=== PATIENT | female | born 1995 | race Caucasian/White ===

== ENCOUNTER 2025-03-15 11:27 | Inpatient (IN) | payer OTHER, SELFPAY ==
[2025-03-15] VITALS (14 sets, daily range): BP systolic 141–158; BP diastolic 90–115; PULSE 73–88; RESP 14–22; TEMP 36.7–37.1; O2SAT 96–98; BMI 30.1
--- NOTE | 2025-03-15 11:41 | ED_ITS ---
HPI - General Adult General Time Seen by Provider: 11:41 Date Seen: 03/15/25 Chief complaint: Flank Pain Stated complaint: L flank pain Time Seen by Provider: 03/15/25 11:40 Source: patient and RN notes reviewed Mode of arrival: ambulatory Limitations: no limitations History of Present Illness HPI narrative: This 29yo female is coming in to the ED with left flank pain. She has some underlying urinary symptoms that brought her to clinic yesterday at [facility]. She was having dysuria, frequency from Thursday to yesterday, feel supple symptoms actually are little better. Since that visit in overnight she has developed left flank pain, nausea, chills, no vomiting. She has had no fever. She states urinalysis showed 5-10 white blood cells and red blood cells. Urine culture is not back yet. She is currently . Her pain was severely intense on the way in, has subsided some. She was hyperventilating and did have carpal spasm bilaterally, improved when she settled down. She describes herself as a minimalist. She notes she has had 2 CT scans before, would prefer not to have CT imaging. 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 She did get a blood clot at the IV site when delivering her baby. She is interested in not accessing her venous system if at all possible. She has no history kidney stones, no known family history kidney stones but her mom is within wondered if this could be a kidney stone. Related Data Home Medications ?Medication ?Instructions ?Recorded ?Confirmed No Known Home Medications 03/15/2502/27 Allergies Allergy/AdvReac Type Severity Reaction Status Date / Time No Known Drug Allergies Allergy Verified 03/15/25 11:35 Review of Systems Status of ROS: Reports: 6 or more systems reviewed and unremarkable except as noted in History and below [facility] Medical History Factor 5 Leiden mutation, heterozygous ?D68.51 - Activated protein C resistance (ICD-10) Social History What is your current living situation?: I presently have a place to live Problems where you live: no known problems Problems where you live details: N/A In the past 12 months, utilities in danger of being shut off: no In past 12 months, lack of transportation kept you from medical appts, meetings, work, or getting things needed for daily living: no In the past 12 mos, have been you worried that your food would run out before you had money to buy more?: never true In the past 12 mos, the food you bought just didn't last and you didn't have money to buy more?: never true Smoking Status: Never smoker Second hand tobacco smoke exposure: No How often do you have a drink containing alcohol: never AUDIT-C Alcohol total score: 0 Non-prescribed substance use: denies use How often does anyone, including family, friends and others, physically hurt you : never How often does anyone, including family, friends and others, insult or talk down to you: never How often does anyone, including family, friends and others, threaten you with harm: never How often does anyone, including family, friends and others, scream or curse at you: never service: No Exam Const: Vital Signs, click to edit/add: Vital Signs - 24 hr 03/15/25 19:04 03/15/25 19:05 03/15/25 19:15 Temperature Pulse Rate 81 Pulse Rate [Pulse Oximeter] 78 Respiratory Rate 16 16 16 Blood Pressure Blood Pressure [Ri ght Upper Arm] 141/90 H Pulse Oximetry 98 Oxygen Delivery Me thod Room Air 03/15/25 19:24 03/15/25 20:00 03/15/25 20:16 Temperature 98.8 F Pulse Rate 73 82 Pulse Rate [Pulse Oximeter] Respiratory Rate 14 16 Blood Pressure 148/104 H Blood Pressure [Ri ght Upper Arm] Pulse Oximetry Oxygen Delivery Me thod This is a very pleasant 29-year-old female after calming down. She was hyperventilating when I 1st came in, was able to slower breathing. Sclera clear, face initially somewhat flushed but did decrease as she calmed down. She is able to speak in complete sentences, speech normal. Lungs are clear, good air entry, no wheezing crackles, no tachypnea at rest, no accessory muscle use. CV regular rate and rhythm, no murmur. Abdomen right now is soft, nontender, nondistended, no organomegaly, no rebound or guarding. No definite CVA tenderness but notably patient states her pain has improved at this time. Documenting provider has reviewed patient's vital signs: yes Course Course ED Course: Reviewed with patient that her symptoms certainly sound concerning for stone pathology with renal colic. It is imperative that we know she has a stone or not. She is going to see if she can get the culture from a [facility]. If not, we may need to get urinalysis here. She declines any pain management at this time, will avoid IV access. Have reviewed with her that I really do need to see CT imaging to look for stone pathology. We did discuss if she has an obstructing stone in there is concern for urinary infection, can be a surgical emergency, patients can get quite ill. We will do some basic blood work on her. She will let us know if she needs anything for pain management. We did review doing ultrasound looking at the renal system versus CT imaging. CT imaging is just so much better at giving us the information on stone size and pathology more so than the ultrasound. She does agree to have the CT done. Reevaluation(s) Time of Reevaluation #1: 13:16 Reevaluation #1: Have reviewed with patient her potassium is quite low. This likely contributed to that carpal spasm. She does not take any diuretics, has had no GI losses. She is , may have a urinary system issue. Really do not have a defined etiology why her potassium would be so low. Have ordered oral effervescent potassium for her. We will get an EKG. She was resting comfortably when I came in. Time of Reevaluation #2: 14:14 Reevaluation #2: Have provided patient with a copy of her CT. Also showed them her EKG with the abnormalities from the hypokalemia. Her magnesium is on the low side of normal. We discussed giving her some oral replacement for magnesium. We have reviewed her kidney stone and anticipated management of this. She would prefer to not be hospitalized. If we can get her potassium up sufficiently, confirm improvement of the EKG changes, do think we can discharge to home with close outpatient follow-up. Time of Reevaluation #3: 16:37 Reevaluation #3: Patient's potassium has come back at 2.6. We are going to order another 10 mEq IV potassium. She is still getting the 1st 10 mEq IV. She has received a total of 100 mEq orally. She is not having further issues at this time as far as her renal colic. After the 2nd dose of IV potassium, plan on rechecking her potassium and EKG. Additional Reevaluation(s): 7:17 p.m.: Have reviewed with patient that her potassium is actually down to 2.5 despite 20 mEq IV potassium and 100 mEq oral effervescent potassium. Her EKG is showing the ongoing nonspecific ST and T-wave abnormality. Her urinalysis from lab yesterday had no ketones, negative nitrates, negative leukocyte esterase, no bacteria, 0-2 red blood cells, 0-5 white cells, no squamous epithelial cells, no white blood clumps. She had no Trichomonas, no yeast, no clue cells under laboratory testing yesterday. We did discuss that we need to consider treatment for possible urinary infection setting of the kidney stone. She has not had increased pain again. It is possible that a 3 mm stone has already moved. I still think we should cover for the possibility of urinary tract infection. I have discussed Rocephin versus Keflex. She would like to look these up and will make a decision. We are attempting to talk to Nephrology. There was an adrenal adenoma seen on her CT imaging incidentally. I feel we need further input from nephrology and help on this case. Consultations Consultation #1: Did speak with Nephrology on-call from [place] whom is with [facility] Dr. Manfred Mccarthy. We reviewed her her case, he states with the elevated blood pressure and the low potassium he would be concerned about hyper aldosteronism. We need to replete her potassium up to 3.5 and then check green in an aldosterone levels. He would also recommend just doing a spot cortisol level which I will see if I can add on. The hospitalist taking care of her tomorrow should contact their group at [phone] sometime after 8 or 9:00 a.m. tomorrow morning. He did not feel that urine studies were going to be helpful in this case. I did ask him about any benefit of giving her extra magnesium at a level of 1.7 which is in our normal range. He did not feel it would be helpful. I have discussed this both with our hospitalist and with the patient. I have subsequently ordered 25 mEq oral potassium and the 10 mEq potassium x4 doses IV. Time: 19:27 Consultation #2: Case was reviewed with our hospitalist Laurel Trevizo. She will accept care. She is aware that there are some EKG changes, patient should be on cardiac monitoring. Time: 19:51 Vital Signs Vital signs: Initial Vital Signs Temperature 98.1 F 03/15/25 11:32 Temperature Source Temporal Artery Scan 03/15/25 11:32 Pulse Rate 88 03/15/25 11:32 Respiratory Rate 22 03/15/25 11:32 Blood Pressure Position Sitting 03/15/25 11:32 Pulse Oximetry 98 03/15/25 11:32 Oxygen Delivery Method Room Air 03/15/25 11:32 Vital Signs Temperature 98.1 F 03/15/25 11:32 Pulse Rate 88 03/15/25 11:32 Respiratory Rate 22 03/15/25 11:32 Pulse Oximetry 98 03/15/25 11:32 Oxygen Delivery Method Room Air 03/15/25 11:32 Temperature 97.6 F 03/16/25 11:00 Pulse Rate 60 03/16/25 11:00 Respiratory Rate 18 03/16/25 11:00 Blood Pressure 144/107 H 03/16/25 11:00 Pulse Oximetry 96 03/16/25 11:00 Oxygen Delivery Method Room Air 03/16/25 11:00 Medications Administered Medications: Generic Name Dose Route Start Last Admin Trade Name Freq PRN Reason Stop Dose Admin Sodium Chloride 5 ml 03/15/25 21:00 03/16/25 09:19 Sodium Chloride 0.9 % (Flush) 10 Ml Syringe IVF 5 ml BID WILLA Administration Discontinued Medications Generic Name Dose Route Start Last Admin Trade Name Freq PRN Reason Stop Dose Admin Magnesium Sulfate/Dextrose 1 gm in 100 mls @ 100 mls/hr 03/15/25 14:46 03/15/25 18:51 Magnesium Sulf 1 G/100 Ml IVPB 03/15/25 15:45 Not Given ONCE ONE Potassium Chloride 10 meq in 100 mls @ 100 mls/hr 03/15/25 14:45 03/15/25 17:20 Potassium Chloride IVPB 03/15/25 15:44 Infused ONCE ONE Infusion Potassium Chloride 10 meq in 100 mls @ 100 mls/hr 03/15/25 16:37 03/15/25 18:08 Potassium Chloride IVPB 03/15/25 17:36 Infused ONCE ONE Infusion Potassium Chloride 10 meq in 100 mls @ 100 mls/hr 03/15/25 19:45 03/16/25 01:23 Potassium Chloride IVPB 03/16/25 01:14 Infused Q90M WILLA Infusion Potassium Chloride 10 meq in 100 mls @ 100 mls/hr 03/16/25 01:30 03/16/25 04:43 Potassium Chloride IVPB 03/16/25 06:59 100 mls/hr Q90M WILLA Administration Magnesium Oxide 400 mg 03/15/25 14:15 03/15/25 14:38 Magnesium Oxide 400 Mg Tablet PO 03/15/25 14:16 400 mg ONCE ONE Administration Potassium Bicarbonate 50 meq 03/15/25 13:12 03/15/25 13:23 Potassium Bicarb 25 Meq Effervescent Tab PO 03/15/25 13:13 50 meq ONCE ONE Administration Potassium Bicarbonate 50 meq 03/15/25 14:15 03/15/25 14:40 Potassium Bicarb 25 Meq Effervescent Tab PO 03/15/25 14:16 50 meq ONCE ONE Administration Potassium Bicarbonate 25 meq 03/15/25 19:39 03/15/25 19:45 Potassium Bicarb 25 Meq Effervescent Tab PO 03/15/25 19:40 25 meq ONCE ONE Administration Potassium Bicarbonate 50 meq 03/16/25 09:12 03/16/25 09:27 Potassium Bicarb 25 Meq Effervescent Tab PO 03/16/25 09:13 50 meq ONCE ONE Administration Medical Decision Making Lab Data Lab results reviewed: Yes I reviewed the patient's lab results Labs: Lab Results 03/15/25 03/15/25 03/15/25 Range/Units 11:59 12:25 13:11 WBC 9.21 (4.50-11.00) K/uL RBC 5.13 (4.00-5.20) m/uL Hgb 13.9 (12.0-16.0) gm/dL Hct 41.7 (33.0-51.0) % MCV 81 (80-100) fL MCH 27 (26-34) pg MCHC 33 (32-36) gm/dL RDW Coeff of Emma 14.9 (11.5-15.5) % Plt Count 352 (140-440) K/uL Neut % (Auto) 69.8 (42.0-72.0) % Lymph % (Auto) 18.9 L (20-44) % Garrard % (Auto) 5.8 (0.0-11.0) % Eos % (Auto) 4.6 (0.0-7.0) % Baso % (Auto) 0.8 (0.0-3.0) % Neut # (Auto) 6.44 (1.7-7.0) K/uL Lymph # (Auto) 1.70 (0.90-2.90) K/uL Garrard # (Auto) 0.50 (0.00-0.90) K/UL Eos # (Auto) 0.42 (0.00-0.50) K/uL Baso # (Auto) 0.07 (0.00-0.30) K/uL Abs Immat Gran (auto) 0.01 (0.00-0.30) K/uL Imm/Tot Granulo (auto) 0.1 % Sodium 139 (135-149) mmol/L Potassium 2.2 L* (3.6-5.1) mmol/L Chloride 97 (96-114) mmol/L Carbon Dioxide 34 H (20-32) mmol/L Anion Gap 8 (7-15) mEq/L BUN 11 (5-24) mg/dL Creatinine 0.6 (0.5-1.5) mg/dL Estimated GFR 123 ml/min Glucose 94 (60-115) mg/dL Lactate 1.2 (0.5-1.9) mmol/L Calcium 9.4 (8.4-10.6) mg/dL Magnesium 1.7 (1.5-2.6) mg/dL C-Reactive Protein 0.9 (0.5-1.0) mg/dL TSH (0.270-4.200) uIU/mL Free T4 (0.70-1.85) ng/dL Urine Color Yellow (Yellow) Urine Appearance Clear (Clear) Urine pH 7.0 (5.0-8.5) Ur Specific [place] 1.020 (1.000-1.030) Urine Protein 3+ A (Negative) Urine Glucose (UA) Negative (Negative) Urine Ketones 3+ A (Negative) Urine Blood 3+ A (Negative) Urine Nitrite Negative (Negative) Urine Bilirubin Negative (Negative) Urine Urobilinogen 0.2 (0.2-1.0) Ur Leukocyte Esterase 1+ A (Negative) Urine RBC 2-5 A (0-2) Urine WBC 10-25 A (0-5) Ur Squamous Epith Cells None (None-Few) Urine Bacteria Moderate A (None) Lab Acknowledgement Test Added 03/15/25 03/15/25 03/15/25 Range/Units 15:32 15:33 18:29 WBC (4.50-11.00) K/uL RBC (4.00-5.20) m/uL Hgb (12.0-16.0) gm/dL Hct (33.0-51.0) % MCV (80-100) fL MCH (26-34) pg MCHC (32-36) gm/dL RDW Coeff of Emma (11.5-15.5) % Plt Count (140-440) K/uL Neut % (Auto) (42.0-72.0) % Lymph % (Auto) (20-44) % Garrard % (Auto) (0.0-11.0) % Eos % (Auto) (0.0-7.0) % Baso % (Auto) (0.0-3.0) % Neut # (Auto) (1.7-7.0) K/uL Lymph # (Auto) (0.90-2.90) K/uL Garrard # (Auto) (0.00-0.90) K/UL Eos # (Auto) (0.00-0.50) K/uL Baso # (Auto) (0.00-0.30) K/uL Abs Immat Gran (auto) (0.00-0.30) K/uL Imm/Tot Granulo (auto) % Sodium (135-149) mmol/L Potassium 2.6 L* 2.5 L* (3.6-5.1) mmol/L Chloride (96-114) mmol/L Carbon Dioxide (20-32) mmol/L Anion Gap (7-15) mEq/L BUN (5-24) mg/dL Creatinine (0.5-1.5) mg/dL Estimated GFR ml/min Glucose (60-115) mg/dL Lactate (0.5-1.9) mmol/L Calcium (8.4-10.6) mg/dL Magnesium (1.5-2.6) mg/dL C-Reactive Protein (0.5-1.0) mg/dL TSH 0.230 L (0.270-4.200) uIU/mL Free T4 1.21 (0.70-1.85) ng/dL Urine Color (Yellow) Urine Appearance (Clear) Urine pH (5.0-8.5) Ur Specific [place] (1.000-1.030) Urine Protein (Negative) Urine Glucose (UA) (Negative) Urine Ketones (Negative) Urine Blood (Negative) Urine Nitrite (Negative) Urine Bilirubin (Negative) Urine Urobilinogen (0.2-1.0) Ur Leukocyte Esterase (Negative) Urine RBC (0-2) Urine WBC (0-5) Ur Squamous Epith Cells (None-Few) Urine Bacteria (None) Lab Acknowledgement Test Added 03/15/25 Range/Units 20:10 WBC (4.50-11.00) K/uL RBC (4.00-5.20) m/uL Hgb (12.0-16.0) gm/dL Hct (33.0-51.0) % MCV (80-100) fL MCH (26-34) pg MCHC (32-36) gm/dL RDW Coeff of Emma (11.5-15.5) % Plt Count (140-440) K/uL Neut % (Auto) (42.0-72.0) % Lymph % (Auto) (20-44) % Garrard % (Auto) (0.0-11.0) % Eos % (Auto) (0.0-7.0) % Baso % (Auto) (0.0-3.0) % Neut # (Auto) (1.7-7.0) K/uL Lymph # (Auto) (0.90-2.90) K/uL Garrard # (Auto) (0.00-0.90) K/UL Eos # (Auto) (0.00-0.50) K/uL Baso # (Auto) (0.00-0.30) K/uL Abs Immat Gran (auto) (0.00-0.30) K/uL Imm/Tot Granulo (auto) % Sodium (135-149) mmol/L Potassium (3.6-5.1) mmol/L Chloride (96-114) mmol/L Carbon Dioxide (20-32) mmol/L Anion Gap (7-15) mEq/L BUN (5-24) mg/dL Creatinine (0.5-1.5) mg/dL Estimated GFR ml/min Glucose (60-115) mg/dL Lactate (0.5-1.9) mmol/L Calcium (8.4-10.6) mg/dL Magnesium (1.5-2.6) mg/dL C-Reactive Protein (0.5-1.0) mg/dL TSH (0.270-4.200) uIU/mL Free T4 (0.70-1.85) ng/dL Urine Color (Yellow) Urine Appearance (Clear) Urine pH (5.0-8.5) Ur Specific [place] (1.000-1.030) Urine Protein (Negative) Urine Glucose (UA) (Negative) Urine Ketones (Negative) Urine Blood (Negative) Urine Nitrite (Negative) Urine Bilirubin (Negative) Urine Urobilinogen (0.2-1.0) Ur Leukocyte Esterase (Negative) Urine RBC (0-2) Urine WBC (0-5) Ur Squamous Epith Cells (None-Few) Urine Bacteria (None) Lab Acknowledgement Test Added Imaging Data CT scan - abdomen: Attestation: I have reviewed the pertinent imaging results. Radiologist's impression: Patient: MARIE NELSON Facility:?[facility] Patient ID:?[id number] Site Patient ID:?[id number]. Site :?[id number] Study:?CT-Abdomen/Pelvis W/O-03/15/2025 12:07:55 PM Ordering Physician:Alonso Raymond Final Report: INDICATION: Abdominal pain TECHNIQUE: Volumetric helical scanning of the abdomen and pelvis was performed without contrast material. Coronal and sagittal reconstructions were obtained. COMPARISON: None FINDINGS: An acutely obstructing 3 mm distal left ureteral stone within 1 cm of the UVJ as seen on image 133 of series 2. Mild left hydroureter and hydronephrosis is demonstrate along with periureteral and perinephric stranding. The kidneys are normal in size, shape and attenuation. The bladder is grossly negative. The uterus and ovaries are grossly negative. The liver is normal in size, shape and attenuation. No bile duct dilation is evident. The spleen is within normal limits. A 1.5 cm left adrenal adenoma is noted. The right adrenal is normal. The pancreas is within normal limits. No lymphadenopathy is evident. No free fluid is demonstrated. The bowel is unremarkable. A normal appendix is demonstrated. The lung bases are essentially clear, and heart size is normal. IMPRESSION: 1. Acutely obstructing 3 mm distal left ureteral stone within 1 cm of the UVJ. 2. 1.5 cm left adrenal adenoma. Please note that all CT scans at this facility use dose modulation, iterative reconstruction, and/or weight-based dosing when appropriate to reduce radiation dose to as low as reasonably achievable. Dictated by Demond Burns MD @ 03/15/2025 1:11:38 PM (Electronic Signature) ECG Data Attestation: I personally reviewed and interpreted this ECG as follows: (Normal sinus rhythm with sinus arrhythmia, 79 beats per minute. She has flipped T- waves inferior anterolateral precordial leads. Some mild ST segment changes V3 V4 V5 certainly. These are consistent with her hypokalemia. QT corrected 470 milliseconds.) Prior ECG tracings: not available for review Interpretation: Second EKG after potassium replacement shows normal sinus rhythm, 90 beats per minute. There are T-wave abnormalities in the inferior and anterolateral dist ribution. The ST segment changes in V3 is certainly not as pronounced. Discharge Plan Discharge Clinical Impression: Acute hypokalemia, Kidney stone on left side Patient Disposition: Admitted As Inpatient Condition: Stable
--- NOTE | 2025-03-15 12:05 | CRLHL7_ITS ---
For Patients: As a result of the Century Cures Act, medical imaging exams and procedure reports are released immediately into your electronic medical record. You may view this report before your referring provider. If you have questions, please contact your health care provider. INDICATION: Abdominal pain TECHNIQUE: Volumetric helical scanning of the abdomen and pelvis was performed without contrast material. Coronal and sagittal reconstructions were obtained. COMPARISON: None FINDINGS: An acutely obstructing 3 mm distal left ureteral stone within 1 cm of the UVJ as seen on image 133 of series 2. Mild left hydroureter and hydronephrosis is demonstrate along with periureteral and perinephric stranding. The kidneys are normal in size, shape and attenuation. The bladder is grossly negative. The uterus and ovaries are grossly negative. The liver is normal in size, shape and attenuation. No bile duct dilation is evident. The spleen is within normal limits. A 1.5 cm left adrenal adenoma is noted. The right adrenal is normal. The pancreas is within normal limits. No lymphadenopathy is evident. No free fluid is demonstrated. The bowel is unremarkable. A normal appendix is demonstrated. The lung bases are essentially clear, and heart size is normal. IMPRESSION: 1. Acutely obstructing 3 mm distal left ureteral stone within 1 cm of the UVJ. 2. 1.5 cm left adrenal adenoma. Please note that all CT scans at this facility use dose modulation, iterative reconstruction, and/or weight-based dosing when appropriate to reduce radiation dose to as low as reasonably achievable. Dictated by Demond Burns MD @ 03/15/2025 1:11:38 PM (Electronically Signed)
[2025-03-15 12:08] LABS: Lactate* 1.2 mmol/L (0.5-1.9)
[2025-03-15 12:09] LABS: Hematocrit 41.7 % (33.0-51.0); Hemoglobin* 13.9 gm/dL (12.0-16.0); Immature Granulocytes Abs Auto 0.01 K/uL (0.00-0.30); Immature Granulocytes Pct Auto 0.1 %; Mean Corpuscular HGB Conc 33 gm/dL (32-36); Mean Corpuscular Hemoglobin 27 pg (26-34); Mean Corpuscular Volume 81 fL (80-100); RDW Coefficient of Variation % 14.9 % (11.5-15.5); Red Blood Count 5.13 m/uL (4.00-5.20); White Blood Count* 9.21 K/uL (4.50-11.00)
[2025-03-15 12:10] LABS: Lymphocytes Absolute Auto 1.70 K/uL (0.90-2.90); Slide Review Reflex No
[2025-03-15 12:24] LABS: Chloride* 97 mmol/L (96-114); Sodium* 139 mmol/L (135-149)
[2025-03-15 12:28] LABS: Anion Gap 8 mEq/L (7-15); Blood Urea Nitrogen* 11 mg/dL (5-24); Calcium* 9.4 mg/dL (8.4-10.6); Carbon Dioxide* 34 mmol/L (20-32); Creatinine* 0.6 mg/dL (0.5-1.5); Estimated Glomerular Filt Rate 123 ml/min; Glucose* 94 mg/dL (60-115)
[2025-03-15 12:34] LABS: Potassium* 2.2 mmol/L (3.6-5.1)
[2025-03-15] MEDS: POTASSIUM BICARB 25 MEQ EFFERVESCENT TAB 50 MEQ PO ×2 (13:23→14:40)
[2025-03-15 13:28] LABS: Appearance Urine Clear (Clear)
[2025-03-15] MEDS: MAGNESIUM OXIDE 400 MG TABLET PO (14:38)
[2025-03-15] MEDS: POTASSIUM CHLORIDE 10 MEQ/100 ML PIGGYBACK 100 MEQ IVPB ×6 (15:44→22:27)
[2025-03-15 16:00] LABS: Potassium* 2.6 mmol/L (3.6-5.1)
[2025-03-15 18:52] LABS: Potassium* 2.5 mmol/L (3.6-5.1)
[2025-03-15] MEDS: POTASSIUM BICARB 25 MEQ EFFERVESCENT TAB PO (19:45)
[2025-03-15 19:52] LABS: TSH With Reflex to FT4* 0.230 uIU/mL (0.270-4.200)
--- NOTE | 2025-03-15 20:14 | PM.IMHP1 ---
Assessment and Plan Assessment and plan (1) Adrenal adenoma: Problem comment: -incidental finding on CT, 1.5 cm left adrenal adenoma -ED provider discussed with Dr. Gina Montez, Nephrology, [facility]. Given hypokalemia and elevated blood pressure, concern for hyperaldosteronism. Recommending hospitalization with potassium replacement and checking renin and aldosterone levels after potassium reaches 3.5. Spot cortisol level ordered in ED -Dr. Montez requests day hospitalist call him morning for further discussion -Will need outpatient follow-up with Nephrology team following discharge Status: Acute (2) Acute hypokalemia: Problem comment: -potassium 2.2-> 2.6-> 2.5 -has received 100 mEq oral potassium and 20 mEq IV potassium in the ED -ED has ordered an additional 25 mEq effervescent potassium and 4 bumps of 10 mEq IV potassium for a total of 40 mEq IV -recheck potassium at midnight -1st EKG NSR with flat/depressed T-wave changes, repeat EKG essentially unchanged. Prolonged QTC Status: Acute (3) Abnormal TSH: Problem comment: -TSH 0.230, free T4 1.21 -cortisol pending -follow-up with nephrology tomorrow for further recommendations, consider overnight dexamethasone suppression test Status: Acute (4) Kidney stone on left side: Problem comment: -initial presentation in the ED was left flank pain -CT shows obstructing 3 mm distal left ureteral stone within 1 cm of the UVJ -pain has since resolved, barely sore. Patient urinated without strainer, question if she may have passed this stone Status: Acute (5) Bacteriuria: Problem comment: -UA clear, negative nitrite, 1+ LE, 10-25 WBC, moderate bacteria -UC pending -patient prefers not to start any antibiotics until culture resulted, this is reasonable Status: Acute (6) Breast feeding status of mother: Problem comment: -current Status: Acute Total Time Spent Total Time Spent: Today I spent 75 minutes seeing the patient, reviewing Expanse and EPIC notes/diagnostics, discussing the care plan with our care time that includes social work, PT/OT, pharmacy, RT, long term and documenting my impressions and plan in the medical record. Hospitalist- H&P: HPI History of Present Illness Date Seen: 03/15/25 Chief complaint: L flank pain Narrative: Jordyn Wolfe is a 29 year old female past medical history significant for factor 5 Leiden, history of DVT and pulmonary emboli, peripheral IV clot is currently , not on any prescription medications, and is admitted to the medical floor from the ED for further management hypokalemia and incidental finding of adrenal adenoma. Patient is seen with mother at bedside. Presented to ED with complaint of left flank pain and recent UTI symptoms including dysuria and frequency for which she was seen at the [facility] yesterday. She tells me her UTI symptoms have dissipated since noon today. Has been afebrile. No headache or dizziness. No chest pain or shortness of breath but was noted to be hyperventilating initially in the ED. This has since resolved. No recent nausea or vomiting. No change in stools. Has been in the ED for several hours and left flank pain has since resolved. It is reported she urinated but did not use a strainer so may have even passed this stone. No previous history of kidney stones. In the ED, patient was noted to have an obstructing 3 mm stone. Unsure if this has since passed but no longer having much pain. Also noted to be hypokalemic with EKG changes. Incidentally, adrenal adenoma was found. ED provider discussed with Nephrology at [facility], Dr. Gina Montez, recommending local hospitalization with potassium replacement, spot cortisol checked now, renin and aldosterone check after potassium improved to 3.5. Recently moved to this area. No outside records available. No PCP yet established. . . - [place] til 2022. Review of Systems Narrative: REVIEW OF SYSTEMS: Complete review of systems performed and negative unless otherwise stated in HPI or below. Medical Decision Making Medical Decision Making Code Status: Full code [facility] Medical History Factor 5 Leiden mutation, heterozygous ?D68.51 - Activated protein C resistance (ICD-10) Social History Smoking Status: Never smoker How often do you have a drink containing alcohol: never AUDIT-C Alcohol total score: 0 Non-prescribed substance use: denies use Meds Home Medications and Allergies Home Medications ?Medication ?Instructions ?Recorded ?Confirmed ?Type No Known Home Medications 03/15/25 03/15/25 History Allergies Allergy/AdvReac Type Severity Reaction Status Date / Time No Known Drug Allergies Allergy Verified 03/15/25 11:35 Exam Narrative: Exam Narrative: PHYSICAL EXAM General: Pleasant, conversant, NAD HEENT: Normocephalic, atraumatic, sclera white, EOMI, oral mucosa moist Cardiovascular: RRR, S1S2. No pitting edema Pulmonary: CTA bilaterally without rhonchi, rales, expiratory wheezes. No dyspnea Abdominal: Soft, nondistended, NTTP Neurological: Alert, answering questions appropriately, cranial nerves intact, no focal findings Extremities: No gross joint deformity or swelling. AROMI. Neurovascularly intact Skin: Warm, dry. Const: Vital Signs, click to edit/add: Vital Signs - 24 hr 03/15/25 11:32 03/15/25 19:04 03/15/25 19:15 Temperature 98.1 F Pulse Rate [Pulse Oximeter] 88 78 Respiratory Rate 22 16 16 Blood Pressure [Ri ght Upper Arm] 141/90 H Pulse Oximetry 98 98 Oxygen Delivery Me thod Room Air Room Air 03/15/25 19:24 Temperature 98.8 F Pulse Rate [Pulse Oximeter] Respiratory Rate Blood Pressure [Ri ght Upper Arm] Pulse Oximetry Oxygen Delivery Co thod Hospitalist - H&P: Result Labs Labs: Short CBC 03/15/25 Range/Units 11:59 WBC 9.21 (4.50-11.00) K/uL Hgb 13.9 (12.0-16.0) gm/dL Hct 41.7 (33.0-51.0) % Plt Count 352 (140-440) K/uL [facility] 03/15/25 03/15/25 03/15/25 11:59 15:32 18:29 Sodium 139 Potassium 2.2 L* 2.6 L* 2.5 L* Chloride 97 Carbon Dioxide 34 H BUN 11 Creatinine 0.6 Glucose 94 Calcium 9.4 Urine 03/15/25 Range/Units 12:25 Urine Color Yellow (Yellow) Urine Appearance Clear (Clear) Urine pH 7.0 (5.0-8.5) Ur Specific [place] 1.020 (1.000-1.030) Urine Protein 3+ A (Negative) Urine Glucose (UA) Negative (Negative) ECG Attestation: I personally reviewed and interpreted this ECG as follows: Interpretation: NSR, flat/depressed T-waves, ventricular rate 90, QTC [address] scan - abdomen: Attestation: I have reviewed the pertinent imaging results. Radiologist's impression: An acutely obstructing 3 mm distal left ureteral stone within 1 cm of the UVJ as seen on image 133 of series 2. Mild left hydroureter and hydronephrosis is demonstrate along with periureteral and perinephric stranding. The kidneys are normal in size, shape and attenuation. The bladder is grossly negative. The uterus and ovaries are grossly negative. The liver is normal in size, shape and attenuation. No bile duct dilation is evident. The spleen is within normal limits. A 1.5 cm left adrenal adenoma is noted. The right adrenal is normal. The pancreas is within normal limits. No lymphadenopathy is evident. No free fluid is demonstrated. The bowel is unremarkable. A normal appendix is demonstrated. The lung bases are essentially clear, and heart size is normal. IMPRESSION: 1. Acutely obstructing 3 mm distal left ureteral stone within 1 cm of the UVJ. 2. 1.5 cm left adrenal adenoma.
[2025-03-15 20:26] LABS: Free T4 Free Thyroxine* 1.21 ng/dL (0.70-1.85)
[2025-03-16 01:10] LABS: Potassium* 2.7 mmol/L (3.6-5.1)
[2025-03-16] MEDS: POTASSIUM CHLORIDE 10 MEQ/100 ML PIGGYBACK 100 MEQ IVPB ×4 (02:02→04:43)
[2025-03-16 02:03] VITALS: BP 148/107; PULSE 81; RESP 16; TEMP 37.3; O2SAT 97
--- NOTE | 2025-03-16 04:24 | PC.NURSE ---
Shift note: Patient arrived to the floor at 2050 from ED. She was accompanied by mother and with 7 months old child. Mother asked if she can stay with the child. Mother was instructed that, the child can stay only an older person stays with them. offered to stay with pt and child. Conscious, alert and oriented on arrival. Patient came with IV Potassium to the right AC. Patient complained on burning sensation to the site of infusion. N/S was given through additional bag to reduce the burning which was effective. IV potassium 40mg given. Lab ordered at 0050 and potassium level cam back as 2.7 from 2.5. MD notified and ordered additional 40mg of potassium IV and potassium level to be rechecked in the morning. Pain level rated at zero. Bp has been elevated but pt denied previous history. Other Vital signs stable.
[2025-03-16 06:40] LABS: Hematocrit 39.0 % (33.0-51.0); Hemoglobin* 13.1 gm/dL (12.0-16.0); Mean Corpuscular HGB Conc 34 gm/dL (32-36); Mean Corpuscular Hemoglobin 28 pg (26-34); Mean Corpuscular Volume 82 fL (80-100); Red Blood Count 4.76 m/uL (4.00-5.20); White Blood Count* 6.77 K/uL (4.50-11.00)
[2025-03-16 06:44] LABS: Chloride* 101 mmol/L (96-114); Sodium* 139 mmol/L (135-149)
[2025-03-16 06:47] LABS: Anion Gap 6 mEq/L (7-15); Blood Urea Nitrogen* 10 mg/dL (5-24); Carbon Dioxide* 32 mmol/L (20-32); Creatinine* 0.6 mg/dL (0.5-1.5); Est. Creatinine Clearance* 137.04; Estimated Glomerular Filt Rate 123 ml/min
[2025-03-16 06:48] LABS: Calcium* 8.7 mg/dL (8.4-10.6); Glucose* 91 mg/dL (60-115); Slide Review Reflex No
[2025-03-16 06:53] LABS: Potassium* 2.9 mmol/L (3.6-5.1)
[2025-03-16 07:00] VITALS: BP 143/95; PULSE 62; PULSE 75; RESP 18; TEMP 36.8; O2SAT 96
[2025-03-16] MEDS: SODIUM CHLORIDE 0.9 % (FLUSH) 10 ML SYRINGE 5 ML IVF (09:19)
[2025-03-16] MEDS: POTASSIUM BICARB 25 MEQ EFFERVESCENT TAB 50 MEQ PO ×3 (09:27→15:37)
[2025-03-16 11:00] VITALS: BP 144/107; PULSE 60; RESP 18; TEMP 36.4; O2SAT 96
[2025-03-16 12:44] LABS: Potassium* 3.1 mmol/L (3.6-5.1)
--- NOTE | 2025-03-16 14:31 | PM.IMPN1 ---
Assessment and Plan Assessment and plan (1) Kidney stone on left side: Problem comment: -initial presentation in the ED was left flank pain -CT shows obstructing 3 mm distal left ureteral stone within 1 cm of the UVJ -pain has since resolved, barely sore. Patient urinated without strainer, question if she may have passed this stone Status: Acute (2) Acute hypokalemia: Problem comment: -potassium 2.2-> 2.6-> 2.5 -has received 100 mEq oral potassium and 20 mEq IV potassium in the ED -ED has ordered an additional 25 mEq effervescent potassium and 4 bumps of 10 mEq IV potassium for a total of 40 mEq IV -recheck potassium at midnight -1st EKG NSR with flat/depressed T-wave changes, repeat EKG essentially unchanged. Prolonged QTC -03/16/2025: spontaneous hypokalemia with elevated blood pressures suspicious of aldosteronism. Continue with potassium supplementation to achieve serum potassium level of 3.5 or greater at which time we will draw blood to assess the plasma renin activity, plasma renin concentration, and plasma aldosterone concentration. Will need follow-up with primary care physician and likely specialist if these come back abnormal. Status: Acute (3) Adrenal adenoma: Problem comment: -incidental finding on CT, 1.5 cm left adrenal adenoma -ED provider discussed with Dr. Gina Montez, Nephrology, [facility]. Given hypokalemia and elevated blood pressure, concern for hyperaldosteronism. Recommending hospitalization with potassium replacement and checking renin and aldosterone levels after potassium reaches 3.5. Spot cortisol level ordered in ED -Dr. Montez requests day hospitalist call him morning for further discussion -Will need outpatient follow-up with Nephrology team following discharge Status: Acute (4) Breast feeding status of mother: Problem comment: -current Status: Acute (5) Bacteriuria: Problem comment: -UA clear, negative nitrite, 1+ LE, 10-25 WBC, moderate bacteria -UC pending -patient prefers not to start any antibiotics until culture resulted, this is reasonable Status: Acute (6) Abnormal TSH: Problem comment: -TSH 0.230, free T4 1.21 -cortisol pending -follow-up with nephrology tomorrow for further recommendations, consider overnight dexamethasone suppression test Status: Acute (7) Factor 5 Leiden mutation, heterozygous: Problem comment: Reports history of DVT and pulmonary emboli - will discuss with patient the idea of low-molecular weight heparin venous thromboembolism prophylaxis while she is in the hospital Status: Acute Plan 1. Discussed with patient and 2. Reviewed my impression, plans, recommendations 3. Answered their questions their satisfaction 4. They are agreeable with above stated plans and recommendations Total Time Spent Total Time Spent: 45 minutes Subjective Date Seen: 03/16/25 Interval history: Admission history of present illness: ?29 year old female past medical history significant for factor 5 Leiden, history of DVT and pulmonary emboli, peripheral IV clot is currently , not on any prescription medications, and is admitted to the medical floor from the ED for further management hypokalemia and incidental finding of adrenal adenoma. ?Patient is seen with mother at bedside. Presented to ED with complaint of left flank pain and recent UTI symptoms including dysuria and frequency for which she was seen at the [facility] yesterday. She tells me her UTI symptoms have dissipated since noon today. Has been afebrile. No headache or dizziness. No chest pain or shortness of breath but was noted to be hyperventilating initially in the ED. This has since resolved. No recent nausea or vomiting. No change in stools. Has been in the ED for several hours and left flank pain has since resolved. It is reported she urinated but did not use a strainer so may have even passed this stone. No previous history of kidney stones. ?In the ED, patient was noted to have an obstructing 3 mm stone. Unsure if this has since passed but no longer having much pain. Also noted to be hypokalemic with EKG changes. Incidentally, adrenal adenoma was found. ED provider discussed with Nephrology at [facility], Dr. Gina Montez, recommending local hospitalization with potassium replacement, spot cortisol checked now, renin and aldosterone check after potassium improved to 3.5. ?Recently moved to this area. No outside records available. No PCP yet established. . . [facility] [place] til 2022. ? Hospital day 2, 03/16/2025: Feels much improved. Believes she passed the kidney stone. No further pain. No longer having spasms of extremities. Eating and drinking without difficulty. Serum potassium level only 2.9 this morning after oral and IV potassium supplementation of nearly 200 mEq. Exam Narrative: Exam Narrative: I examine her in her hospital room. Appears comfortable no acute distress. Alert and oriented x4. Friendly, articulate, cooperative. No carpal pedal spasms. Lungs clear to auscultation. Heart tones with regular rhythm. Abdomen is benign. Breast-feeding her son. Independent with all transfers, station, gait. Const: Vital Signs, click to edit/add: Vital Signs - 24 hr 03/15/25 19:04 03/15/25 19:05 03/15/25 19:15 Temperature Pulse Rate 81 Pulse Rate [Left P ulse Oximeter] Pulse Rate [Pulse Oximeter] 78 Respiratory Rate 16 16 16 Blood Pressure Blood Pressure [Le ft Arm] Blood Pressure [Ri ght Upper Arm] 141/90 H Pulse Oximetry [facility] 03/15/25 19:24 03/15/25 20:00 03/15/25 20:16 Temperature 98.8 F Pulse Rate 73 82 Pulse Rate [Left P ulse Oximeter] Pulse Rate [Pulse Oximeter] Respiratory Rate 14 16 Blood Pressure 148/104 H Blood Pressure [Le ft Arm] Blood Pressure [Ri ght Upper Arm] Pulse Oximetry Oxygen Delivery Ri thod 03/15/25 20:23 03/15/25 21:12 03/15/25 21:32 Temperature 98.4 F 98.4 F Pulse Rate Pulse Rate [Left P ulse Oximeter] 88 88 Pulse Rate [Pulse Oximeter] Respiratory Rate 16 16 Blood Pressure Blood Pressure [Le ft Arm] 152/115 H 152/115 H Blood Pressure [Ri ght Upper Arm] Pulse Oximetry 98 96 [address] [facility] Room Air 03/15/25 21:35 03/15/25 22:30 03/15/25 22:32 Temperature 98.6 F Pulse Rate 77 Pulse Rate [Left P ulse Oximeter] 78 78 Pulse Rate [Pulse Oximeter] Respiratory Rate 16 16 Blood Pressure Blood Pressure [Le ft Arm] 158/105 H Blood Pressure [Ri ght Upper Arm] Pulse Oximetry 97 [facility] 03/15/25 23:00 03/16/25 02:03 03/16/25 07:00 Temperature 99.1 F Pulse Rate 79 62 Pulse Rate [Left P ulse Oximeter] 81 Pulse Rate [Pulse Oximeter] Respiratory Rate 16 Blood Pressure Blood Pressure [Le ft Arm] 148/107 H Blood Pressure [Ri ght Upper Arm] Pulse Oximetry 97 Oxygen Delivery Me thod Room Air 03/16/25 07:00 03/16/25 07:00 03/16/25 11:00 Temperature 98.3 F 97.6 F Pulse Rate Pulse Rate [Left P ulse Oximeter] 75 75 60 Pulse Rate [Pulse Oximeter] Respiratory Rate 18 18 18 Blood Pressure Blood Pressure [Le ft Arm] 143/95 H 144/107 H Blood Pressure [Ri ght Upper Arm] Pulse Oximetry 96 96 Oxygen Delivery Me thod Room Air Room Air Labs Labs: Laboratory Results - last 24 hr 03/15/25 03/15/25 03/15/25 15:32 15:33 18:29 WBC RBC Hgb Hct MCV MCH MCHC Plt Count Sodium Potassium 2.6 L* 2.5 L* Chloride Carbon Dioxide Anion Gap BUN Creatinine Estimated Creat Clear Estimated GFR Glucose Calcium Magnesium TSH 0.230 L Free T4 1.21 Lab Acknowledgement Test Added 03/15/25 03/16/25 03/16/25 20:10 00:49 06:20 WBC 6.77 RBC 4.76 Hgb 13.1 Hct 39.0 MCV 82 MCH 28 MCHC 34 Plt Count 321 Sodium 139 Potassium 2.7 L* 2.9 L* Chloride 101 Carbon Dioxide 32 Anion Gap 6 L BUN 10 Creatinine 0.6 Estimated Creat Clear 137.04 Estimated GFR 123 Glucose 91 Calcium 8.7 Magnesium 1.9 TSH Free T4 Lab Acknowledgement Test Added 03/16/25 12:15 WBC RBC Hgb Hct MCV MCH MCHC Plt Count Sodium Potassium 3.1 L Chloride Carbon Dioxide Anion Gap BUN Creatinine Estimated Creat Clear Estimated GFR Glucose Calcium Magnesium TSH Free T4 Lab Acknowledgement ECG Attestation: I personally reviewed and interpreted this ECG as follows: Interpretation: Normal sinus rhythm. Nonspecific ST wave abnormalities.
[2025-03-16 14:39] VITALS: PULSE 55
[2025-03-16 15:00] VITALS: BP 150/101; PULSE 69; RESP 18; TEMP 36.8; O2SAT 98
[2025-03-16 16:58] LABS: Potassium* 4.1 mmol/L (3.6-5.1)
--- NOTE | 2025-03-16 17:48 | PC.NURSE ---
Discharge Note 278 Patient was very pleasant and cooperative throughout shift. Admitted for hypokalemia. VSS. Afebrile. No pain reported all day today. Ambulating independently. Patient was advised to establish a primary care physician and make an appointment within 5-10 days after discharge. Patient accompanied by her spouse and discharged by 17:44 today.
[2025-03-17 05:20] LABS: Cortisol, Serum 10.3 ug/dL
== END 2025-03-16 17:44 | disposition home or self-care (01) | DRG 641 ==
LOC: ED 19:54 → MEDSURG 20:18
PROVIDERS: Internal Medicine; Admitting Provider Physician Assistant; Emergency Provider Family Medicine; Visit Provider Physician Assistant
DX: E87.6 Hypokalemia (principal); N13.2 Hydronephrosis with renal and ureteral calculous obstruction; D68.51 Activated protein C resistance; D35.02 Benign neoplasm of left adrenal gland; R03.0 Elevated blood-pressure reading, without diagnosis of hypertension; R94.6 Abnormal results of thyroid function studies; R82.71 Bacteriuria; R94.31 Abnormal electrocardiogram [ECG] [EKG]; Z39.1 Encounter for care and examination of lactating mother; Z86.718 Personal history of other venous thrombosis and embolism; Z86.711 Personal history of pulmonary embolism
CPT/HCPCS: 36415; 74176; 80048; 81001; 82533; 83605; 83735; 84132; 84439; 84443; 85025; 85027; 86140; 87086; 93005; 94761; 99285; A9270; J3480

== ENCOUNTER 2025-03-21 08:34 | Outpatient (CLI) | payer OTHER, SELFPAY | END 2025-03-21 08:35 | disposition home or self-care (01) | PROVIDERS: Visit Provider Family Medicine | DX: D68.51 Activated protein C resistance (principal); R79.89 Other specified abnormal findings of blood chemistry; R82.71 Bacteriuria; N20.0 Calculus of kidney; E87.6 Hypokalemia | CPT/HCPCS: 80053; 82088; 84244; 84443 ==

== ENCOUNTER 2025-03-31 08:25 | Outpatient (CLI) | payer OTHER, SELFPAY | END 2025-03-31 08:26 | disposition home or self-care (01) | LOC: NFLDREF 04-03 12:01 | PROVIDERS: PCP Family Medicine; Referring Provider Family Medicine; Visit Provider Family Medicine | DX: D35.00 Benign neoplasm of unspecified adrenal gland (principal); E87.6 Hypokalemia | CPT/HCPCS: 84132 ==

== ENCOUNTER 2025-04-07 07:11 | Outpatient (CLI) | payer OTHER, SELFPAY | END 2025-04-07 07:12 | disposition home or self-care (01) | PROVIDERS: PCP Family Medicine; Visit Provider Family Medicine | DX: E16.2 Hypoglycemia, unspecified (principal) | CPT/HCPCS: 84132 ==

== ENCOUNTER 2025-04-13 09:57 | Outpatient (CLI) | payer OTHER, SELFPAY | END 2025-04-13 09:58 | disposition home or self-care (01) | LOC: NFLDREF 04-28 02:02 | PROVIDERS: PCP Family Medicine; Referring Provider Family Medicine; Visit Provider Family Medicine | DX: E26.09 Other primary hyperaldosteronism (principal); E87.6 Hypokalemia | CPT/HCPCS: 84132 ==

== ENCOUNTER 2025-04-17 14:38 | Outpatient (CLI) | payer OTHER, SELFPAY | END 2025-04-17 14:39 | disposition home or self-care (01) | PROVIDERS: PCP Family Medicine; Visit Provider Internal Medicine Nephrology | DX: E87.6 Hypokalemia (principal); N20.0 Calculus of kidney; I10 Essential (primary) hypertension | CPT/HCPCS: 80069; 82043; 82570; 83970; 84550; 87086 ==

== ENCOUNTER 2025-04-19 14:43 | Outpatient (CLI) | payer OTHER, SELFPAY ==
--- NOTE | 2025-04-19 14:45 | CRLHL7_ITS ---
For Patients: As a result of the Century Cures Act, medical imaging exams and procedure reports are released immediately into your electronic medical record. You may view this report before your referring provider. If you have questions, please contact your health care provider. INDICATION: Primary hyperaldosteronism, adrenal adenoma, left kidney stone TECHNIQUE: Grayscale, color flow and spectral Doppler evaluation of the kidneys and renal arteries performed bilaterally. COMPARISON: None available FINDINGS: BILATERAL RENAL ARTERY DUPLEX ULTRASOUND ABDOMINAL AORTA: Peak systolic velocity = 122 cm/s. No aortic aneurysm. RIGHT KIDNEY: 10.5 cm in length. There is no hydronephrosis. Peak systolic velocity = 165 cm/second Renal artery to aortic peak systolic velocity ratio = 1.4 Resistive indices: Normal Renal vein = patent LEFT KIDNEY: 11.2 cm in length. There is no hydronephrosis. Peak systolic velocity = 147 cm/second Renal artery to aortic peak systolic velocity ratio = 1.2 Resistive indices: Normal Renal vein = patent IMPRESSION: No evidence of significant renal artery stenosis. Dictated by Omer Delgado MD @ 04/19/2025 4:30:13 PM (Electronically Signed)
== END 2025-04-19 14:44 | disposition home or self-care (01) ==
LOC: US 14:44
PROVIDERS: PCP Family Medicine; Visit Provider Internal Medicine Nephrology
DX: N20.0 Calculus of kidney (principal); D35.00 Benign neoplasm of unspecified adrenal gland; E87.6 Hypokalemia; R53.83 Other fatigue
CPT/HCPCS: 76775; 93975

== ENCOUNTER 2025-04-19 16:10 | Outpatient (CLI) | payer OTHER, SELFPAY | END 2025-04-19 16:11 | disposition home or self-care (01) | LOC: NFLDREF 16:12 | PROVIDERS: PCP Family Medicine; Visit Provider Internal Medicine Nephrology | DX: D35.00 Benign neoplasm of unspecified adrenal gland (principal); N20.0 Calculus of kidney; E87.6 Hypokalemia; R53.83 Other fatigue; N39.0 Urinary tract infection, site not specified; E26.09 Other primary hyperaldosteronism; R79.89 Other specified abnormal findings of blood chemistry | CPT/HCPCS: 82340; 82436; 82507; 82570; 83735; 83945; 83986; 84105; 84133; 84300; 84392; 84560 ==

== ENCOUNTER 2025-06-16 11:35 | Outpatient (CLI) | payer OTHER, SELFPAY ==
[2025-06-16 11:46] LABS: Ionized Calcium* 1.17 mmol/L (1.11-1.30)
[2025-06-18 04:05] LABS: Gliadin Peptide Ab, IgA <0.72 FLU (0.00-4.99)
[2025-06-18 12:05] LABS: Immunoglobulin A 110 mg/dL (68-408)
[2025-06-20 06:12] LABS: 25-Hydroxyvitamin D2 <1.0 ng/mL; 25-Hydroxyvitamin D3 31.3 ng/mL
== END 2025-06-16 11:36 | disposition home or self-care (01) ==
LOC: NPINS 11:36
PROVIDERS: PCP Family Medicine; Visit Provider Internal Medicine
DX: E21.3 Hyperparathyroidism, unspecified (principal)
CPT/HCPCS: 82306; 82330; 82784; 83735; 86231; 86258; 86364